=== PATIENT | female | born 1975 | race Caucasian/White ===

== ENCOUNTER 2016-09-26 08:43 | Emergency (ER) | payer BC, MEDICAID ==
[2016-09-26] MEDS ORDERED: HYDROmorphone 2 MG/ML SDV IM ONE (10:03)
[2016-09-26] MEDS ORDERED: Metoclopramide 10 MG/2 ML SDV IM ONE (10:04)
[2016-09-26] MEDS ORDERED: Potassium Chloride 10% 20 MEQ/15 ML Soln 15 ML UD Cup PO ONE (11:12)
[2016-09-26 12:00] VITALS: BP 133/73
--- NOTE | 2016-09-30 15:21 | ER ---
DATE SEEN: 09/26/2016 CHIEF COMPLAINT: Left-sided pain. HISTORY OF PRESENT ILLNESS: This 40-year-old had onset of 12/10 left flank discomfort on 09/24/2016. She was unable to sleep, had difficulty walking. No associated vomiting, fever, or dysuria. PAST MEDICAL HISTORY: Significant for GERD, depression, hypertension, hypothyroidism, diverticulitis (after eating popcorn), gastroparesis, polycystic ovaries, and a significant acute recent 20-pound weight loss over 10 days. FAMILY HISTORY: Father of myocardial infarction. Father had prostate cancer while he was alive. Mother at age 56. Has an older brother. One sister was born without one eye and the other eye is blind. Another sister is alive and well. One sister has ovarian cancer. MEDICATIONS: Hypertension. The patient treated with topiramate 50 mg daily, metoprolol 50 mg daily, hydrochlorothiazide 25 mg daily, bupropion XL one tab daily, omeprazole 20 mg daily, and levothyroxine 137 mcg daily. Also she takes Probiotic called Align 10.5 mg and Bifidobacterium infantis. ALLERGIES: She has allergies to Prozac. REVIEW OF SYSTEMS: HEENT: Denies compromised eyes, dry eyes. Compromised vision, wears glasses. Hearing is appropriate. Normal. Pharynx without abnormality. No globus. No difficulty swallowing. No recent sore throat. mouth, she notes is slightly difficult to open her mouth sometimes, it is kind of tight in her mouth. CARDIORESPIRATORY: Denies shortness of breath or cough. Denies chest pain, irregular heartbeat, lightheadedness, or dizziness. GI: As noted above. No recent diarrhea, constipation, blood in the stool, black tarry stool, and hematochezia. She does have GERD. She has had 20-pound weight loss in the last 10 days. : 2, para 2-0-0-2. Irregular menstrual periods. Polycystic ovaries. MUSCULOSKELETAL: Denies arthritis, joint aches. She has gastroparesis. It takes a while before she empties her stomach. She has had it for some time, and she has diarrhea and gastroparesis for the last 15 years. PHYSICAL EXAMINATION: VITAL SIGNS: Blood pressure 120/74, heart rate 87, respirations 18, oxygen saturation 100%, and temperature 36.8 degrees centigrade. CONSTITUTIONAL: The patient is alert, overweight, in mild distress. HEENT: PERRLA intact. Eyegrounds normal appearance. Pharynx without abnormality. There is slight increased telangiectasia of the lips when everted. No unusual changes in the gingiva. Minimal cervical adenopathy. No thyromegaly. NECK: No masses in the neck. LUNGS: Clear to auscultation. HEART: S1 and S2. No murmur. Regular rate and rhythm. ABDOMEN: No abdominal guarding or rebound. Notes trace CVA discomfort in the left compared to the right. Mild left lateral flank discomfort. No inguinal adenopathy. No inguinal masses. No impulse noted. No inguinal adenopathy. LOWER EXTREMITIES: Without edema. DERMIS: She has slight tightening around the face, there is no fissuring of the lips-no lip folds. Fingertips, no evidence for thickening or compromised circulation or compromised capillary fill. (No history of Raynaud phenomena.) LABORATORY FINDINGS: Potassium low at 3.4, otherwise sodium 136, chloride 103, CO2 24, BUN 16, creatinine 1.0, GFR greater than 60. BUN and creatinine ratio 16, glucose mildly elevated 122, creatine kinase is 314, C-reactive protein 17.7. Urinalysis is negative except for moderate bacteria, but no WBCs or RBCs and rare epithelial cells. Urine culture pending. WORKING DIAGNOSIS: 1. Probable connective tissue disease. 2. 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 3. Gastroesophageal reflux disease. 4. Hypothyroidism-she had been taking all her pills, but she forgot to take her thyroid medicine for 4 months. Recently, when she saw a doctor, her TSH on 09/17/2016 was greater than 100. She started taking medicine, and now her last TSH on 09/28/2016 is 1.71 (0.4 to 5.0). Her other more recent lab work, creatinine is 1.17, BUN is 16 on 09/24/2016. On 09/17/2016, AMA was 1.19, 0 to 0.90 is within normal range, so this is slightly elevated. Rheumatoid factor on 09/16/2016 is less than 15. Sedimentation rate the same day, it was 28.0 to 20. On 09/16/2016, free T4 was less than 0.4 (0.7 to 1.5). HPV taken in March 2015 was negative. The patient noted she did not get HPV vaccine because she was celibate. Last menstrual period was 09/19/2016 to 09/25/2016, done for one day, and then she started flowing on 09/24/2016 with recurrent flow. 5. Depression. 6. Hypertension, on 3-drug therapy. 7. History of diverticulitis, result not present. 8. Polycystic ovaries-she is not on metformin (consider use of metformin). 9. Obesity. 10.She has been sick off and on for 14 years. Etiology indeterminate, possibly related to scleroderma. 11.No family history of connective tissue disease, rheumatoid arthritis. Multiple tests have been suggested. I did not order these as her primary care physician would be helpful. Tests would be listed in vertical fashion: DOT with nucleolar pattern would be suggested positive. Anti-poisomerase I (anti-SCL-70 antibody). Anti-topoisomerase I (SCL-70 antibody). Anti-centromere antibody (HECTOR). Anti-RNA polymerase III antibody. Rheumatoid factor. Anti CCP-(antibodies to citrullinated peptide). Lupus (anti-double stranded DNA and anti-Cuevas antibodies). SUPERVISOR/PORT DIRECTOR antibodies. ANCA is not needed. Other studies, but unlikely needed. High-resolution CT scan to evaluate interstitial changes in the lungs. Pulmonary function test-at present not symptomatic. The patient is not symptomatic for Raynaud disease. She does not have dyspnea on exertion. She may have beginnings to malabsorption with diarrhea and this weight loss, so celiac study could be done at this point, but has not been ordered. 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 She has oral manifestations and she has the diarrhea and has the weight loss and abnormal thyroid studies, which may go along with scleroderma. It is possible that at present she has gastroparesis. Renal status and pulmonary status appears to be good and she does not have Raynaud phenomena. The patient to follow up with doctor next week. She is given a shot of Dilaudid 1 mg IM, Reglan 10 mg IM, and dismissed home without any further medication. DIAGNOSIS: Abdominal pain with stigmata suggestive of scleroderma, diarrhea, 20- pound weight loss in 10 days without a pulmonary and renal component, but has gastroparesis for some time. The patient was seen at 9:10 in the morning. ADDITIONAL COMMENT: Renal CT today was not performed to rule out renal stones as urine did not suggest renal stones nor did clinical findings suggest renal stones. She has a trace of CVA discomfort on the left CVA. /[id number] NIKOLAY/ABDOUL
== END 2016-09-26 11:25 | disposition home or self-care (01) ==
LOC: FB.ED 08:43
DX: R10.9 Unspecified abdominal pain (principal); K21.9 Gastro-esophageal reflux disease without esophagitis; F32.9 Major depressive disorder, single episode, unspecified; I10 Essential (primary) hypertension; E03.9 Hypothyroidism, unspecified; Z88.8 Allergy status to other drugs, medicaments and biological substances
CPT/HCPCS: 36415; 80053; 81001; 82550; 83605; 84443; 86038; 86140; 86431; 87040; 87086; 96372; 99283; A9270; J1170; J2765

== ENCOUNTER 2016-09-29 16:19 | Inpatient (IN) | payer MEDICAID ==
[2016-09-29] MEDS ORDERED: Sodium Chloride 0.9% 10 ML Syringe FLUSH PRN (17:31)
--- NOTE | 2016-09-29 17:43 | PCM.HP ---
H&P History of Present Illness - General Date of Service: 09/29/16 Admit Problem/Dx: Admission Diagnosis/Problem Admission Diagnosis/Problem Perforated diverticulum of large intestine Source of Information: Patient, Old Records History Limitations: Reports: No Limitations - History of Present Illness Initial Comments - Free Text/Narative: 40 yo wf who developed left flank pain on pm last week. Presented to the ED and was worked up. Not found to have any significant issues per her PCP. The pain has persisted and she was seen in the Clinic yesterday. Lab work was negative except for her ESR and c reactive protein. On CT scan today was noted to have a microperforation/ phlegmon in the area of the sigmoid colon. She has a known hx of diverticulosis, which was found on C scope many yrs ago. She notes some fever, chills as well as night sweats. Pain has not gotten worse. PMH is significant for PTSD, hypothyroidism, and Dysthymic disorder. Recently finished some cytomel for an exacerbation of her hypothyroidism. - Related Data Allergies/Adverse Reactions: Allergies Allergy/AdvReac Type Severity Reaction Status Date / Time fluoxetine [From Prozac] Allergy Other Verified 09/29/16 17:21 Home Medications: Home Meds Bifidobacterium Infantis [Align] 10.5 mg PO DAILY 09/26/16 [History] Hydrochlorothiazide 25 mg PO DAILY 09/26/16 [History] Levothyroxine [Levothroid] 137 mcg PO DAILY 09/26/16 [History] Metoprolol Succinate 50 mg PO DAILY 09/26/16 [History] Omeprazole 20 mg PO DAILY 09/26/16 [History] Potassium Chloride [Potassium Chloride Solution] 20 meq PO BID #14 cup 09/26/16 [Rx] Topiramate 50 mg PO DAILY 09/26/16 [History] buPROPion [buPROPion XL] 1 tab PO DAILY 09/26/16 [History] Acetaminophen with Codeine [Tylenol with Codeine #3 Tablet] 1 tab PO Q4H PRN [History] hydrOXYzine Pamoate [Hydroxyzine Pamoate] 25 - 50 mg PO BID PRN 09/29/16 [ History] Past Medical History HEENT History: Reports: Sinusitis (chronic) Gastrointestinal History: Reports: Diverticulosis, GERD, Other (See Below) ( gastroparesis) Psychiatric History: Reports: PTSD Endocrine/Metabolic History: Reports: Hypothyroidism, Other (See Below) Other Endocrine/Metabolic History: States she has taken thyroid medication for many years. - Past Surgical History GI Surgical History: Reports: Cholecystectomy, Colonoscopy Female Surgical History: Reports: Section, Tubal Ligation Social & Family History - Family History Cardiac: Reports: CAD, Hypertension Psychiatric: Reports: Depression Oncologic: Reports: Breast - Tobacco Use Smoking Status *Q: Current Every Day Smoker Years of Tobacco use: 24 Packs/Tins Daily: 0.5 - Tobacco Core Measures Smoking Frequency Within Last 30 Days: Reports: Five or More Cigarettes Per Day Smokeless Tobacco Use in Last 30 Days: No Smokeless Tobacco Use History: None - Alcohol Use Alcohol Use History: No - Recreational Drug Use Recreational Drug Use: No - Living Situation & Occupation Living situation: Reports: Single H&P Review of Systems - Review of Systems: Review Of Systems: See Below General: Reports: Fever, Chills, Night Sweats HEENT: Reports: No Symptoms Pulmonary: Reports: No Symptoms Cardiovascular: Reports: No Symptoms Gastrointestinal: Reports: Abdominal Pain Genitourinary: Reports: No Symptoms Musculoskeletal: Reports: No Symptoms Skin: Reports: No Symptoms Psychiatric: Reports: Anxiety Neurological: Reports: No Symptoms Exam - Exam Exam: See Below - Vital Signs Weight: 84.822 kg - Exam General: Alert, Oriented, Cooperative. No: Mild Distress, Moderate Distress, Severe Distress HEENT: PERRLA, Conjunctiva Clear, EOMI, Hearing Intact, Mucosa Moist & [place], Pupils Equal, Pupils Reactive, TMs Clear Neck: Supple Lungs: Clear to Auscultation, Normal Respiratory Effort Cardiovascular: Regular Rate, Regular Rhythm GI/Abdominal Exam: Normal Bowel Sounds, No Distention, No Mass, Tender (tender to palpation on the left lateral side ) (Female) Exam: Deferred Back Exam: Normal Inspection Extremities: Normal Inspection, No Pedal Edema Skin: Warm, Dry, Intact Psychiatric: Alert, Normal Affect, Normal Mood *Q Meaningful Use (ADM) - VTE *Q VTE Criteria *Q: VTE Anticoagulation Contraindications: Medical/Procedure Contrai - Stroke *Q Stroke Criteria *Q: - AMI *Q AMI Criteria *Q: - Problem List (1) Perforated diverticulum of large intestine SNOMED Code(s): 917814848 ICD Code: K57.20 - DVTRCLI OF LG INT W PERFORATION AND ABSCESS W/O BLEEDING Status: Acute Priority: High Current Visit: Yes (2) Hypertension SNOMED Code(s): 80808140 ICD Code: I10 - ESSENTIAL (PRIMARY) HYPERTENSION Status: Chronic Priority : Medium Current Visit: Yes Qualifiers: Hypertension type: essential hypertension Qualified Code(s): I10 - Essential (primary) hypertension (3) Hypothyroidism SNOMED Code(s): 49995463 ICD Code: E03.9 - HYPOTHYROIDISM, UNSPECIFIED Status: Chronic Priority: Medium Current Visit: Yes Qualifiers: Hypothyroidism type: acquired Qualified Code(s): E03.9 - Hypothyroidism, unspecified (4) GERD (gastroesophageal reflux disease) SNOMED Code(s): 205893071 ICD Code: K21.9 - GASTRO-ESOPHAGEAL REFLUX DISEASE WITHOUT ESOPHAGITIS Status: Chronic Priority: Low Current Visit: Yes Qualifiers: Esophagitis presence: esophagitis presence not specified Qualified Code(s) : K21.9 - Gastro-esophageal reflux disease without esophagitis (5) PTSD (post-traumatic stress disorder) SNOMED Code(s): 12642080 ICD Code: F43.10 - POST-TRAUMATIC STRESS DISORDER, UNSPECIFIED Status: Chronic Priority: Low Current Visit: Yes (6) Gastroparesis SNOMED Code(s): 639678505 ICD Code: K31.84 - GASTROPARESIS Status: Chronic Priority: Low Current Visit: Yes Problem List Initiated/Reviewed/Updated: Yes Orders Last 24hrs: Active Orders 24 hr Category Date Time Status Admission Status [Patient Status] [ADT] Routine ADT 09/29/16 17:15 Active Ambulate [RC] .TID Care 09/29/16 17:31 Ordered Antiembolic Devices [RC] .Routine Care 09/29/16 17:33 Ordered Intake and Output [RC] QSHIFT Care 09/29/16 17:31 Ordered Notify Provider Vital Signs [RC] PRN Care 09/29/16 17:32 Ordered Oxygen Therapy [RC] PRN Care 09/29/16 17:31 Ordered RT Incentive Spirometry [RC] Q2HWA Care 09/29/16 17:31 Ordered VTE/DVT Education [RC] Click to Edit Care 09/29/16 17:33 Ordered Vital Signs [RC] Q4HR Care 09/29/16 17:31 Ordered Nothing Per Oral Diet [DIET] Diet 09/29/16 Dinner Ordered BASIC METABOLIC PANEL,BMP [CHEM] Routine Lab 09/29/16 17:31 Ordered CBC WITH AUTO DIFF [HEME] Routine Lab 09/29/16 17:31 Ordered HYDROmorphone [Dilaudid] Med 09/29/16 17:31 Ordered 1 mg IVPUSH Q1H PRN Lactated Ringers @ 125 MLS/HR(1000ml) Med 09/29/16 17:45 Ordered Lactated Ringers [Ringers, Lactated] 1,000 ml IV ASDIRECTED Levofloxacin/Dextrose 5%-Water [Levaquin in D5W 750 MG/ Med 09/29/16 17:45 Ordered 150 ML] 750 mg Premix Bag 1 bag IV Q24H Sodium Chloride 0.9% [Saline Flush] Med 09/29/16 17:31 Ordered 10 ml FLUSH ASDIRECTED PRN metroNIDAZOLE/Normal Saline [Flagyl 500 MG in NS 100 ML Med 09/29/16 17:45 Ordered ] 500 mg Premix Bag 1 bag IV Q8H DVT/VTE Prophylaxis Reflex [OM.PC] Per Unit Routine Oth 09/29/16 17:33 Ordered Peripheral IV Insertion Adult [OM.PC] Urgent Oth 09/29/16 17:31 Ordered Sequential Compression Device [OM.PC] Routine Oth 09/29/16 17:31 Ordered Resuscitation Status Routine Resus Stat 09/29/16 17:31 Ordered Assessment/Plan Comment:: Pt does not appear to require surgical intervention at this time, but is a candidate for conservative treatment. Plan: Serial exams continue medications via oral route other price npo iv fluids levaquin and flagyl via iv. lab work this evening as a baseline though was essentially unremarkable yesterday.
[2016-09-29] MEDS: HYDROmorphone 2 MG/ML SDV IVPUSH PRN ×2 (17:55→22:43)
[2016-09-29] MEDS: Lactated Ringers 1,000 ML IV SCH (17:57)
[2016-09-29] MEDS: metroNIDAZOLE/Normal Saline 500 MG in Premix Bag 1 BAG IV SCH (17:57)
[2016-09-29] MEDS ORDERED: Nicotine 14 MG/24 Hr Patch TRDERM SCH (18:00)
[2016-09-29] MEDS: Pantoprazole 40 MG Vial IVPUSH SCH (20:24)
[2016-09-29] MEDS: Levofloxacin/Dextrose 5%-Water 750 MG in Premix Bag 1 BAG IV SCH (20:34)
[2016-09-30] MEDS ORDERED: metroNIDAZOLE/Normal Saline 0 ML ONE (00:12)
[2016-09-30] MEDS: Levofloxacin/Dextrose 5%-Water 750 MG in Premix Bag 1 BAG IV SCH ×2 (02:41→18:49)
[2016-09-30] MEDS: metroNIDAZOLE/Normal Saline 500 MG in Premix Bag 1 BAG IV SCH ×3 (02:45→17:37)
[2016-09-30] MEDS: HYDROmorphone 2 MG/ML SDV IVPUSH PRN ×4 (03:58→23:36)
[2016-09-30] MEDS: Lactated Ringers 1,000 ML IV SCH ×2 (05:18→05:19)
[2016-09-30] MEDS: Topiramate 50 MG Tab PO SCH (08:47)
[2016-09-30] MEDS: buPROPion 150 MG Tab.ER PO SCH (08:48)
[2016-09-30] MEDS: Metoprolol Succinate 50 MG Tab.ER PO SCH (08:50)
[2016-09-30] MEDS: D5 1/2 NS w/ 20 mEq/L KCl 1,000 ML IV SCH ×3 (09:19→21:23)
[2016-09-30] MEDS ORDERED: metroNIDAZOLE/Normal Saline 100 ML ONE (10:25)
[2016-09-30] MEDS ORDERED: Lactated Ringers 1,000 ML IV ONE (11:36)
--- NOTE | 2016-09-30 11:42 | PCM.SURGPN ---
- General Info Date of Service: 09/30/16 Functional Status: Reports: Pain Controlled, Urinating (dark urine ) - Review of Systems Pulmonary: Reports: No Symptoms Cardiovascular: Reports: No Symptoms Gastrointestinal: Reports: Other (flank pain) - Patient Data Vitals - Most Recent: Last Vital Signs Temp 36.6 C 09/30/16 08:00 Pulse 62 09/30/16 08:50 Resp 18 09/30/16 08:00 BP 116/73 09/30/16 08:50 Pulse Ox 100 09/30/16 08:00 Weight - Most Recent: 84.822 kg I&O - Last 24 Hours: Intake & Output 09/29/16 09/30/16 09/30/16 22:59 06:59 14:59 Intake Total 400 957 Output Total 300 475 350 Balance 100 482 -350 Lab Results Last 24 Hrs: Laboratory Results - last 24 hr 09/29/16 09/29/16 Range/Units 17:55 17:55 WBC 6.3 (4.5-12.0) X10-3/uL RBC 3.13 L (3.23-5.20) x10(6)uL Hgb 10.8 L (11.5-15.5) g/dL Hct 31.1 (30.0-51.3) % MCV 99.4 H (80-96) fL MCH 34.4 H (27.7-33.6) pg MCHC 34.6 (32.2-35.4) g/dL RDW 13.6 (11.5-15.5) % Plt Count 207 (125-369) X10(3)uL MPV 10.0 (7.4-10.4) fL Add Manual Diff Yes Neutrophils % (Manual) 56 (46-82) % Lymphocytes % (Manual) 39 H (13-37) % Monocytes % (Manual) 3 L (4-12) % Eosinophils % (Manual) 2 (0-5) % Sodium 135 (135-145) mmol/L Potassium 3.0 L (3.5-5.3) mmol/L Chloride 101 (100-110) mmol/L Carbon Dioxide 25 (23-29) mmol/L BUN 13 (5-20) mg/dL Creatinine 1.0 (0.6-1.3) mg/dL Est Cr Clr Drug Dosing 63.28 mL/min Estimated GFR (MDRD) > 60 (>60) BUN/Creatinine Ratio 13.0 (9-20) Glucose 124 H (80-116) mg/dL Calcium 9.3 (8.6-10.2) mg/dL Med Orders - Current: Current Medications Bupropion HCl (Wellbutrin Xl) 150 mg PO DAILY [facility] Last Admin: 09/30/16 08:48 Dose: 150 mg Hydromorphone HCl (Dilaudid) 1 mg IVPUSH Q1H PRN PRN Reason: Pain (moderate 4-6) Last Admin: 09/30/16 10:42 Dose: 1 mg Levofloxacin/Dextrose 750 mg/ (Premix) 150 mls @ 100 mls/hr IV Q24H [facility] Last Infusion: 09/29/16 22:04 Dose: Infused Metronidazole 500 mg/ Premix 100 mls @ 100 mls/hr IV Q8H [facility] Last Admin: 09/30/16 10:28 Dose: 100 mls/hr Potassium Chloride/Dextrose/Sod Cl (D5 1/2 Ns W/ 20 Meq/L Kcl) 1,000 mls @ 125 mls/hr IV Q8H [facility] Last Admin: 09/30/16 09:19 Dose: 125 mls/hr Lactated Ringer's (Ringers, Lactated) 1,000 mls @ 999 mls/hr IV BOLUS ONE Stop: 09/30/16 12:36 Levothyroxine Sodium (Levothroid) 137 mcg PO DAILY [facility] Last Admin: 09/30/16 08:47 Dose: 137 mcg Metoprolol Succinate (Toprol Xl) 50 mg PO DAILY [facility] Last Admin: 09/30/16 08:50 Dose: 50 mg Nicotine (Habitrol) 14 mg TRDERM Q24H [facility] Pantoprazole Sodium (Protonix Iv) 40 mg IVPUSH Q24H [facility] Last Admin: 09/29/16 20:24 Dose: 40 mg Potassium Chloride (Klor-Con M20) 20 meq PO BID [facility] Sodium Chloride (Saline Flush) 10 ml FLUSH ASDIRECTED PRN PRN Reason: Keep Vein Open Last Admin: 09/29/16 18:03 Dose: 10 ml Topiramate (Topamax) 50 mg PO DAILY [facility] Last Admin: 09/30/16 08:47 Dose: 50 mg Discontinued Medications Lactated Ringer's (Ringers, Lactated) 1,000 mls @ 125 mls/hr IV ASDIRECTED [facility] Last Admin: 09/30/16 05:19 Dose: 125 mls/hr Metronidazole (Flagyl 500 Mg In Ns 100 Ml) Confirm Administered Dose 100 mls @ as directed .ROUTE .STK-MED ONE Stop: 09/30/16 00:13 Last Admin: 09/30/16 04:53 Dose: Not Given Metronidazole (Flagyl 500 Mg In Ns 100 Ml) Confirm Administered Dose 100 mls @ as directed .ROUTE .STK-MED ONE Stop: 09/30/16 10:26 Nicotine (Habitrol) 14 mg TRDERM DAILY [facility] Last Admin: 09/29/16 18:11 Dose: Not Given - Exam General: Alert, Oriented, No Acute Distress Lungs: Clear to Auscultation, Normal Respiratory Effort Cardiovascular: Regular Rate, Regular Rhythm GI/Abdominal Exam: Normal Bowel Sounds, Non-Tender, Tender (left flank ) - Problem List & Annotations (1) Perforated diverticulum of large intestine SNOMED Code(s): 777166433 Code(s): K57.20 - DVTRCLI OF LG INT W PERFORATION AND ABSCESS W/O BLEEDING Status: Acute Priority: High Current Visit: Yes (2) Hypertension SNOMED Code(s): 20717383 Code(s): I10 - ESSENTIAL (PRIMARY) HYPERTENSION Status: Chronic Priority : Medium Current Visit: Yes Qualifiers: Hypertension type: essential hypertension Qualified Code(s): I10 - Essential (primary) hypertension (3) Hypothyroidism SNOMED Code(s): 02782879 Code(s): E03.9 - HYPOTHYROIDISM, UNSPECIFIED Status: Chronic Priority: Medium Current Visit: Yes Qualifiers: Hypothyroidism type: acquired Qualified Code(s): E03.9 - Hypothyroidism, unspecified (4) GERD (gastroesophageal reflux disease) SNOMED Code(s): 384421606 Code(s): K21.9 - GASTRO-ESOPHAGEAL REFLUX DISEASE WITHOUT ESOPHAGITIS Status: Chronic Priority: Low Current Visit: Yes Qualifiers: Esophagitis presence: esophagitis presence not specified Qualified Code(s) : K21.9 - Gastro-esophageal reflux disease without esophagitis (5) PTSD (post-traumatic stress disorder) SNOMED Code(s): 69515849 Code(s): F43.10 - POST-TRAUMATIC STRESS DISORDER, UNSPECIFIED Status: Chronic Priority: Low Current Visit: Yes (6) Gastroparesis SNOMED Code(s): 935944248 Code(s): K31.84 - GASTROPARESIS Status: Chronic Priority: Low Current Visit: Yes - Problem List Review Problem List Initiated/Reviewed/Updated: Yes - My Orders Last 24 Hours: Active Orders 24 hr Category Date Time Status Admission Status [Patient Status] [ADT] Routine ADT 09/29/16 17:15 Active Ambulate [RC] .TID Care 09/29/16 17:31 Active Antiembolic Devices [RC] .Routine Care 09/29/16 17:33 Active Intake and Output [RC] 06,14,22 Care 09/29/16 17:31 Active Notify Provider Vital Signs [RC] PRN Care 09/29/16 17:32 Active Oxygen Therapy [RC] PRN Care 09/29/16 17:31 Active RT Incentive Spirometry [RC] Q2HWA Care 09/29/16 17:31 Active Vital Signs [RC] Q4HR Care 09/29/16 17:31 Active Nothing Per Oral Diet [DIET] Diet 09/29/16 Dinner Active D5 1/2 NS w/ 20 mEq/L KCl 1,000 ml Med 09/30/16 08:30 Active IV Q8H HYDROmorphone [Dilaudid] Med 09/29/16 17:31 Active 1 mg IVPUSH Q1H PRN Lactated Ringers [Ringers, Lactated] 1,000 ml Med 09/30/16 11:36 Ordered IV BOLUS Levofloxacin/Dextrose 5%-Water [Levaquin in D5W 750 MG/ Med 09/29/16 19:00 Active 150 ML] 750 mg Premix Bag 1 bag IV Q24H Levothyroxine [Levothroid] Med 09/30/16 09:00 Active 137 mcg PO DAILY Metoprolol Succinate [Toprol XL] Med 09/30/16 09:00 Active 50 mg PO DAILY Nicotine [Habitrol] Med 09/30/16 18:00 Active 14 mg TRDERM Q24H Pantoprazole [ProTONIX IV] Med 09/29/16 18:00 Active 40 mg IVPUSH Q24H Potassium Chloride [Klor-Con M20] Med 09/30/16 21:00 Ordered 20 meq PO BID Sodium Chloride 0.9% [Saline Flush] Med 09/29/16 17:31 Active 10 ml FLUSH ASDIRECTED PRN Topiramate [Topamax] Med 09/30/16 09:00 Active 50 mg PO DAILY buPROPion [Wellbutrin XL] Med 09/30/16 09:00 Active 150 mg PO DAILY metroNIDAZOLE/Normal Saline [Flagyl 500 MG in NS 100 ML Med 09/29/16 18:00 Active ] 500 mg Premix Bag 1 bag IV Q8H DVT/VTE Prophylaxis Reflex [OM.PC] Per Unit Routine Oth 09/29/16 17:33 Ordered Peripheral IV Insertion Adult [OM.PC] Urgent Oth 09/29/16 17:31 Ordered Sequential Compression Device [OM.PC] Routine Oth 09/29/16 17:31 Ordered Resuscitation Status Routine Resus Stat 09/29/16 17:31 Ordered Medication Orders Bupropion HCl (Wellbutrin Xl) 150 mg PO DAILY [facility] Last Admin: 09/30/16 08:48 Dose: 150 mg Hydromorphone HCl (Dilaudid) 1 mg IVPUSH Q1H PRN PRN Reason: Pain (moderate 4-6) Last Admin: 09/30/16 10:42 Dose: 1 mg Admin: 09/30/16 03:58 Dose: 1 mg Admin: 09/29/16 22:43 Dose: 1 mg Admin: 09/29/16 17:55 Dose: 1 mg Levofloxacin/Dextrose 750 mg/ (Premix) 150 mls @ 100 mls/hr IV Q24H [facility] Last Infusion: 09/29/16 22:04 Dose: 100 mls/hr Admin: 09/29/16 20:34 Dose: 100 mls/hr Metronidazole 500 mg/ Premix 100 mls @ 100 mls/hr IV Q8H [facility] Last Admin: 09/30/16 10:28 Dose: 100 mls/hr Infusion: 09/30/16 03:45 Dose: 100 mls/hr Admin: 09/30/16 02:45 Dose: 100 mls/hr Infusion: 09/29/16 18:57 Dose: 100 mls/hr Admin: 09/29/16 17:57 Dose: 100 mls/hr Potassium Chloride/Dextrose/Sod Cl (D5 1/2 Ns W/ 20 Meq/L Kcl) 1,000 mls @ 125 mls/hr IV Q8H [facility] Last Admin: 09/30/16 09:19 Dose: 125 mls/hr Lactated Ringer's (Ringers, Lactated) 1,000 mls @ 999 mls/hr IV BOLUS ONE Stop: 09/30/16 12:36 Levothyroxine Sodium (Levothroid) 137 mcg PO DAILY [facility] Last Admin: 09/30/16 08:47 Dose: 137 mcg Metoprolol Succinate (Toprol Xl) 50 mg PO DAILY [facility] Last Admin: 09/30/16 08:50 Dose: 50 mg Nicotine (Habitrol) 14 mg TRDERM Q24H [facility] Pantoprazole Sodium (Protonix Iv) 40 mg IVPUSH Q24H [facility] Last Admin: 09/29/16 20:24 Dose: 40 mg Potassium Chloride (Klor-Con M20) 20 meq PO BID [facility] Sodium Chloride (Saline Flush) 10 ml FLUSH ASDIRECTED PRN PRN Reason: Keep Vein Open Last Admin: 09/29/16 18:03 Dose: 10 ml Topiramate (Topamax) 50 mg PO DAILY [facility] Last Admin: 09/30/16 08:47 Dose: 50 mg - Assessment Assessment (Free Text/Narrative):: stable abd exam - Plan Plan (Free Text/Narrative):: will allow clears will start some KCl bolus of LR
[2016-09-30] MEDS: Ondansetron 4 MG/2 ML SDV IVPUSH SCH ×3 (12:44→23:30)
[2016-09-30] MEDS: Pantoprazole 40 MG Vial IVPUSH SCH (17:36)
[2016-09-30] MEDS ORDERED: Nicotine 14 MG/24 Hr Patch TRDERM SCH (18:00)
[2016-09-30] MEDS: Potassium Chloride 20 MEQ Tab.ER PO SCH (20:31)
[2016-10-01] MEDS: metroNIDAZOLE/Normal Saline 500 MG in Premix Bag 1 BAG IV SCH ×2 (01:36→10:07)
[2016-10-01] MEDS: Ondansetron 4 MG/2 ML SDV IVPUSH SCH ×2 (06:02→12:25)
[2016-10-01] MEDS: D5 1/2 NS w/ 20 mEq/L KCl 1,000 ML IV SCH ×2 (06:05→08:55)
[2016-10-01 07:43] VITALS: BP 141/92
[2016-10-01] MEDS: Potassium Chloride 20 MEQ Tab.ER PO SCH (09:02)
[2016-10-01] MEDS: buPROPion 150 MG Tab.ER PO SCH (09:03)
[2016-10-01] MEDS: Metoprolol Succinate 50 MG Tab.ER PO SCH (09:03)
[2016-10-01] MEDS: Topiramate 50 MG Tab PO SCH (09:03)
--- NOTE | 2016-10-01 10:43 | PCM.DCSUM1 ---
Discharge Summary - Hospital Course Free Text/Narrative:: Pt was admitted with left flank pain and CT evidence of a microperforation of a sigmoid diverticuli. She was placed on IV antibiotics and kept NPO. Started on a clear liquid diet which she tolerated. Pain has improved, and since she had a normal WBC she will be sent home. - Discharge Data Discharge Date: 10/01/16 Discharge Disposition: Home, Self-Care 01 Condition: Good - Discharge Diagnosis/Problem(s) (1) Perforated diverticulum of large intestine SNOMED Code(s): 084853952 ICD Code: K57.20 - DVTRCLI OF LG INT W PERFORATION AND ABSCESS W/O BLEEDING Status: Acute Priority: High Current Visit: Yes (2) Hypertension SNOMED Code(s): 78055739 ICD Code: I10 - ESSENTIAL (PRIMARY) HYPERTENSION Status: Chronic Priority : Medium Current Visit: Yes Qualifiers: Hypertension type: essential hypertension Qualified Code(s): I10 - Essential (primary) hypertension (3) Hypothyroidism SNOMED Code(s): 89982551 ICD Code: E03.9 - HYPOTHYROIDISM, UNSPECIFIED Status: Chronic Priority: Medium Current Visit: Yes Qualifiers: Hypothyroidism type: acquired Qualified Code(s): E03.9 - Hypothyroidism, unspecified (4) GERD (gastroesophageal reflux disease) SNOMED Code(s): 432593223 ICD Code: K21.9 - GASTRO-ESOPHAGEAL REFLUX DISEASE WITHOUT ESOPHAGITIS Status: Chronic Priority: Low Current Visit: Yes Qualifiers: Esophagitis presence: esophagitis presence not specified Qualified Code(s) : K21.9 - Gastro-esophageal reflux disease without esophagitis (5) PTSD (post-traumatic stress disorder) SNOMED Code(s): 94782304 ICD Code: F43.10 - POST-TRAUMATIC STRESS DISORDER, UNSPECIFIED Status: Chronic Priority: Low Current Visit: Yes (6) Gastroparesis SNOMED Code(s): 157463196 ICD Code: K31.84 - GASTROPARESIS Status: Chronic Priority: Low Current Visit: Yes - Patient Instructions Diet: Usual Diet as Tolerated, No Alcoholic Beverages Activity: No Strenuous Activities, Rest and Relax Today Driving: Do Not Drive Showering/Bathing: May Shower Notify Provider of: Fever, Increased Pain - Discharge Plan Prescriptions/Med Rec: Celecoxib [CeleBREX] 200 mg PO BID #14 cap Levofloxacin [Levaquin] 750 mg PO Q24H #10 tablet metroNIDAZOLE [Flagyl] 500 mg PO Q8H #30 tab traMADol HCl [Ultram] 50 mg PO Q6HR PRN #30 tablet PRN Reason: Pain (Moderate 4-6) Home Medications: Home Meds Bifidobacterium Infantis [Align] 10.5 mg PO DAILY 09/26/16 [History] Hydrochlorothiazide 25 mg PO DAILY 09/26/16 [History] Levothyroxine [Levothroid] 137 mcg PO DAILY 09/26/16 [History] Metoprolol Succinate 50 mg PO DAILY 09/26/16 [History] Omeprazole 20 mg PO DAILY 09/26/16 [History] Potassium Chloride [Potassium Chloride Solution] 20 meq PO BID #14 cup 09/26/16 [Rx] Topiramate 50 mg PO DAILY 09/26/16 [History] buPROPion [buPROPion XL] 150 mg PO DAILY 09/26/16 [History] Acetaminophen with Codeine [Tylenol with Codeine #3 Tablet] 1 tab PO Q4H PRN [History] hydrOXYzine Pamoate [Hydroxyzine Pamoate] 25 - 50 mg PO BID PRN 09/29/16 [ History] Celecoxib [CeleBREX] 200 mg PO BID #14 cap 10/01/16 [Rx] Levofloxacin [Levaquin] 750 mg PO Q24H #10 tablet 10/01/16 [Rx] metroNIDAZOLE [Flagyl] 500 mg PO Q8H #30 tab 10/01/16 [Rx] traMADol HCl [Ultram] 50 mg PO Q6HR PRN #30 tablet 10/01/16 [Rx] Patient Handouts: Diverticulitis, [id number] Referrals: Brain Rosenthal MD [Physician] - 10/05/16 - Discharge Summary/Plan Comment DC Time >30 min.: No - General Info Date of Service: 10/01/16 - Review of Systems General: Reports: No Symptoms, Fever, Weakness Pulmonary: Reports: No Symptoms Cardiovascular: Reports: No Symptoms Gastrointestinal: Reports: Abdominal Pain, Other - Patient Data Vitals - Most Recent: Last Vital Signs Temp 36.4 C 10/01/16 07:20 Pulse 63 10/01/16 09:03 Resp 20 10/01/16 07:20 BP 141/92 H 10/01/16 09:03 Pulse Ox 100 10/01/16 07:20 Weight - Most Recent: 84.822 kg I&O - Last 24 hours: Intake & Output 09/30/16 10/01/16 10/01/16 22:59 06:59 14:59 Intake Total 2900 1267 1400 Output Total 1375 850 950 Balance 1525 417 450 Med Orders - Current: Current Medications Bupropion HCl (Wellbutrin Xl) 150 mg PO DAILY [facility] Last Admin: 10/01/16 09:03 Dose: 150 mg Hydromorphone HCl (Dilaudid) 1 mg IVPUSH Q1H PRN PRN Reason: Pain (moderate 4-6) Last Admin: 09/30/16 23:36 Dose: 1 mg Levofloxacin/Dextrose 750 mg/ (Premix) 150 mls @ 100 mls/hr IV Q24H [facility] Last Admin: 09/30/16 18:49 Dose: 100 mls/hr Metronidazole 500 mg/ Premix 100 mls @ 100 mls/hr IV Q8H [facility] Last Admin: 10/01/16 10:07 Dose: 100 mls/hr Potassium Chloride/Dextrose/Sod Cl (D5 1/2 Ns W/ 20 Meq/L Kcl) 1,000 mls @ 125 mls/hr IV Q8H [facility] Last Admin: 10/01/16 08:55 Dose: Not Given Levothyroxine Sodium (Levothroid) 137 mcg PO DAILY [facility] Last Admin: 10/01/16 09:02 Dose: 137 mcg Metoprolol Succinate (Toprol Xl) 50 mg PO DAILY [facility] Last Admin: 10/01/16 09:03 Dose: 50 mg Nicotine (Habitrol) 14 mg TRDERM Q24H [facility] Last Admin: 09/30/16 18:00 Dose: Not Given Ondansetron HCl (Zofran) 4 mg IVPUSH Q6H [facility] Last Admin: 10/01/16 06:02 Dose: 4 mg Pantoprazole Sodium (Protonix Iv) 40 mg IVPUSH Q24H [facility] Last Admin: 09/30/16 17:36 Dose: 40 mg Potassium Chloride (Klor-Con M20) 20 meq PO BID [facility] Last Admin: 10/01/16 09:02 Dose: 20 meq Sodium Chloride (Saline Flush) 10 ml FLUSH ASDIRECTED PRN PRN Reason: Keep Vein Open Last Admin: 09/29/16 18:03 Dose: 10 ml Topiramate (Topamax) 50 mg PO DAILY [facility] Last Admin: 10/01/16 09:03 Dose: 50 mg Discontinued Medications Lactated Ringer's (Ringers, Lactated) 1,000 mls @ 125 mls/hr IV ASDIRECTED [facility] Last Admin: 09/30/16 05:19 Dose: 125 mls/hr Metronidazole (Flagyl 500 Mg In Ns 100 Ml) Confirm Administered Dose 100 mls @ as directed .ROUTE .STK-MED ONE Stop: 09/30/16 00:13 Last Admin: 09/30/16 04:53 Dose: Not Given Metronidazole (Flagyl 500 Mg In Ns 100 Ml) Confirm Administered Dose 100 mls @ as directed .ROUTE .STK-MED ONE Stop: 09/30/16 10:26 Last Admin: 09/30/16 12:47 Dose: Not Given Lactated Ringer's (Ringers, Lactated) 1,000 mls @ 999 mls/hr IV BOLUS ONE Stop: 09/30/16 12:36 Last Admin: 09/30/16 12:48 Dose: 999 mls/hr Nicotine (Habitrol) 14 mg TRDERM DAILY [facility] Last Admin: 09/29/16 18:11 Dose: Not Given - Exam General: Reports: Alert, Oriented, No Acute Distress Lungs: Reports: Clear to Auscultation, Normal Respiratory Effort Cardiovascular: Reports: Regular Rate, Regular Rhythm GI/Abdominal Exam: Normal Bowel Sounds, Soft, Non-Tender, Other (left flank tenderness, much better. ) *Q Meaningful Use (DIS) - VTE *Q VTE Criteria *Q: VTE Anticoagulation Contraindications: Medical/Procedure Contrai - Stroke *Q Stroke Criteria *Q: - AMI *Q AMI Criteria *Q:
== END 2016-10-01 11:24 | disposition home or self-care (01) | DRG 392 ==
LOC: FB.MS 17:05
PROVIDERS: ADMIT Surgery; ATTEND Surgery
DX: K57.20 Diverticulitis of large intestine with perforation and abscess without bleeding (principal); I10 Essential (primary) hypertension; E03.9 Hypothyroidism, unspecified; K21.9 Gastro-esophageal reflux disease without esophagitis; F43.10 Post-traumatic stress disorder, unspecified; K31.84 Gastroparesis; F17.210 Nicotine dependence, cigarettes, uncomplicated; F34.1 Dysthymic disorder
CPT/HCPCS: 36415; 80048; 85025; 94150; A9270-GY; C9113; J1170; J1956; J2405; J3480; J7050; J7120

== ENCOUNTER 2019-07-30 11:51 | Emergency (ER) | payer MEDICAID ==
[2019-07-30 12:14] VITALS: BP 139/83; PULSE 88
--- NOTE | 2019-07-30 12:27 | EDM.PDOC ---
ED HPI GENERAL MEDICAL PROBLEM - General Chief Complaint: ENT Problem Stated Complaint: LEFT EYE PAIN Time Seen by Provider: 07/30/19 11:55 - History of Present Illness INITIAL COMMENTS - FREE TEXT/NARRATIVE: Has pain in the left eye ans swelling , redness in the last 3 days has gotten worse states minimal blurred vision no headache , fever or chills noted Onset: Gradual Onset Date: 07/27/19 Duration: Day(s): (4), Getting Worse Location: Reports: Face (left upper eyelid) Quality: Reports: Ache Severity: Mild Improves with: Reports: Heat Therapy Associated Symptoms: Reports: No Other Symptoms left eye Pain Score (Numeric/FACES): 7 - Related Data Allergies Allergy/AdvReac Type Severity Reaction Status Date / Time amoxicillin [From Augmentin] Allergy Rash Verified 07/30/19 12:08 clavulanic acid Allergy Rash Verified 07/30/19 12:08 [From Augmentin] fluoxetine [From Prozac] Allergy Other Verified 09/29/16 17:21 Home Meds: Home Meds Bifidobacterium Infantis [Align] 10.5 mg PO DAILY 09/26/16 [History] Hydrochlorothiazide 12.5 mg PO DAILY 09/26/16 [History] Metoprolol Succinate 50 mg PO DAILY 09/26/16 [History] Omeprazole 20 mg PO DAILY 09/26/16 [History] Topiramate 50 mg PO BID 09/26/16 [History] buPROPion [buPROPion XL] 150 mg PO DAILY 09/26/16 [History] hydrOXYzine pamoate [Hydroxyzine Pamoate] 25 - 50 mg PO BID PRN 09/29/16 [ History] Albuterol [Proventil Neb Soln] 2.5 mg IH QID 12/29/17 [History] Ciclopirox/Urea/Camph/Men/Euc [Ciclopirox 8% Treatment Kit] 1 applic TOP BID [History] DULoxetine HCl [Duloxetine HCl] 30 mg PO DAILY 12/29/17 [History] Levothyroxine 175 mcg PO DAILY 12/29/17 [History] Meloxicam [Mobic] 7.5 mg PO WITHBREAKFAST 12/29/17 [History] Metoclopramide HCl 10 mg PO TIDAC 12/29/17 [History] Acetaminophen [Acetaminophen Extra Strength] 1,000 mg PO ASDIRECTED PRN [History] Ciprofloxacin [Ciloxan 0.3% Ophth Soln] 2 drop EYELF Q4H #1 bottle 07/30/19 [Rx] Past Medical History HEENT History: Reports: Impaired Vision, Sinusitis Cardiovascular History: Reports: Hypertension Gastrointestinal History: Reports: Diverticulosis, GERD, Other (See Below) Other Gastrointestinal History: GASTROPARESIS Genitourinary History: Reports: UTI, Recurrent BRIDGE RIGGER History: Reports: Other BRIDGE RIGGER History: III PARA II AB I Musculoskeletal History: Reports: Osteoporosis Neurological History: Reports: None Psychiatric History: Reports: PTSD Endocrine/Metabolic History: Reports: Hypothyroidism, Other (See Below) Other Endocrine/Metabolic History: States she has taken thyroid medication for many years. Hematologic History: Reports: None Immunologic History: Reports: None Oncologic (Cancer) History: Reports: None Dermatologic History: Reports: Other (See Below) Other Dermatologic History: CHRONIC CONDITION ON RIGHT FOOT ONLY. STATES IS HAVING ISSUES WITH RASH. PEELING LIKE AREA ON UNDERFOOT, NO OPEN AREAS. STATES STARTING ON CREAM FOR THIS. - Infectious Disease History Infectious Disease History: Reports: None - Past Surgical History Head Surgeries/Procedures: Reports: None GI Surgical History: Reports: Cholecystectomy, Colonoscopy, EGD Female Surgical History: Reports: Section, Tubal Ligation Social & Family History - Family History Family Medical History: Noncontributory Cardiac: Reports: CAD, Hypertension Psychiatric: Reports: Depression Oncologic: Reports: Breast - Tobacco Use Smoking Status *Q: Current Every Day Smoker Years of Tobacco use: 30 Packs/Tins Daily: 0.5 - Caffeine Use Caffeine Use: Reports: None - Living Situation & Occupation Living situation: Reports: Single ED ROS ENT - Review of Systems Review Of Systems: Comprehensive ROS is negative, except as noted in HPI. HEENT: Reports: Eye Discharge (noted last night from the left eye), Eye Pain Respiratory: Reports: No Symptoms Cardiovascular: Reports: No Symptoms Endocrine: Reports: No Symptoms Musculoskeletal: Reports: No Symptoms Skin: Reports: No Symptoms Neurological: Reports: No Symptoms ED EXAM, ENT - Physical Exam Exam: See Below Exam Limited By: No Limitations General Appearance: Alert, WD/WN, No Apparent Distress Eye Exam: Left Eye: Other (swelling redness and pain in the left upper eyelid), Bilateral Eye: EOMI, Periorbital Changes Ears: Normal External Exam Nose: Nasal Deformity Mouth/Throat: Normal Inspection Head: Atraumatic Neck: Supple, Non-Tender Respiratory/Chest: No Respiratory Distress Course - Vital Signs Last Recorded V/S: Last Vital Signs Temp 37.2 C 07/30/19 11:51 Pulse 88 07/30/19 11:51 Resp 17 07/30/19 11:51 BP 139/83 07/30/19 11:51 Pulse Ox 99 07/30/19 11:51 Departure - Departure Time of Disposition: 12:30 Disposition: Home, Self-Care 01 Clinical Impression: Hordeolum externum (stye), Hordeolum externum left upper eyelid - Discharge Information *PRESCRIPTION DRUG MONITORING PROGRAM REVIEWED*: Not Applicable *COPY OF PRESCRIPTION DRUG MONITORING REPORT IN PATIENT EMILY: Not Applicable Instructions: David Referrals: Sowmya Valiente REST ROOM ATTENDANT [Primary Care Provider] - Additional Instructions: 1) continue with warm compress on the left eye lid every 2-4 hrs while awake 2) Ok to use ibuprofen as needed for pain 3) See opthalmologist if symptoms do not resolve as expected Sepsis Event Note - Evaluation Sepsis Screening Result: No Definite Risk - Focused Exam Vital Signs: Vital Signs Temp Pulse Resp BP Pulse Ox 07/30/19 11:51 37.2 C 88 17 139/83 99 Date Exam was Performed: 07/30/19 Time Exam was Performed: 12:22
== END 2019-07-30 12:27 | disposition home or self-care (01) ==
LOC: FB.ED 11:51
DX: H00.014 Hordeolum externum left upper eyelid (principal); I10 Essential (primary) hypertension; K21.9 Gastro-esophageal reflux disease without esophagitis; E03.9 Hypothyroidism, unspecified; Z90.89 Acquired absence of other organs; Z88.1 Allergy status to other antibiotic agents; Z88.8 Allergy status to other drugs, medicaments and biological substances; Z79.899 Other long term (current) drug therapy
CPT/HCPCS: 99283

== ENCOUNTER 2019-12-17 14:29 | Emergency (ER) | payer BC, MEDICAID ==
[2019-12-17 16:01] VITALS: BP 151/90; PULSE 103
== END 2019-12-17 15:05 | disposition left against medical advice (07) ==
LOC: FB.ED 14:29
DX: Z53.21 Procedure and treatment not carried out due to patient leaving prior to being seen by health care provider (principal)

== ENCOUNTER 2021-05-14 16:55 | Observation (INO) | payer BC, MEDICAID ==
[2021-05-14] MEDS ORDERED: Sodium Chloride 0.9% 1,000 ML IV ONE (17:19)
[2021-05-14] MEDS: Sodium Chloride 0.9% 10 ML Syringe FLUSH PRN (17:40)
[2021-05-14 18:02] LABS: ESTIMATED GFR > 60 (>60)
[2021-05-14] MEDS ORDERED: Morphine 4 MG/ML VIAL IVPUSH STA (18:39)
[2021-05-14] MEDS ORDERED: Ondansetron 4 MG/2 ML SDV IVPUSH STA (18:39)
[2021-05-14] MEDS ORDERED: Ondansetron 4 MG/2 ML SDV IV PRN (18:59)
[2021-05-14] MEDS: Piperacillin/Tazobactam 4.5 GM in Sodium Chloride 0.9% 100 ML IV SCH (19:15)
[2021-05-14] MEDS: Sodium Chloride 0.9% 1,000 ML IV SCH (19:16)
[2021-05-14] MEDS ORDERED: LORazepam 2 MG/ML SDV IVPUSH PRN (20:29)
[2021-05-15] MEDS: Morphine 2 MG/ML SYRINGE IVPUSH PRN ×2 (00:43→04:05)
[2021-05-15] MEDS: Piperacillin/Tazobactam 4.5 GM in Sodium Chloride 0.9% 100 ML IV SCH ×4 (00:52→18:32)
[2021-05-15] MEDS: Sodium Chloride 0.9% 1,000 ML IV SCH ×3 (04:05→21:10)
[2021-05-15 07:09] LABS: ESTIMATED GFR > 60 (>60)
[2021-05-15] MEDS ORDERED: Triamcinolone Acetonide 0.1% Crm 15 GM Tube TOP PRN (08:00)
[2021-05-15] MEDS ORDERED: Acetaminophen 500 MG Tab PO PRN (08:00)
[2021-05-15] MEDS ORDERED: DEXAMETHASONE EYEBOTH PRN (08:00)
[2021-05-15] MEDS ORDERED: Albuterol 0.083% 2.5 MG/3 ML Neb Soln INH PRN ×2 (08:00)
[2021-05-15] MEDS ORDERED: [UNRECOGNIZED DRUG - OTHER] EYEBOTH PRN (08:00)
[2021-05-15] MEDS ORDERED: TOBRAMYCIN EYEBOTH PRN (08:00)
[2021-05-15] MEDS: Ketorolac 30 MG/ML SDV IVPUSH PRN ×2 (08:27→17:13)
[2021-05-15] MEDS: Enoxaparin 40 MG/0.4 ML Syringe SUBCUT SCH (08:30)
[2021-05-15] MEDS ORDERED: FLUTICASONE PROPIONATE INH SCH (09:00)
[2021-05-15] MEDS: Hydroxychloroquine 200 MG Tab PO SCH ×2 (09:42→20:14)
[2021-05-15] MEDS: Pantoprazole 40 MG Tab.CR PO SCH (09:42)
[2021-05-15] MEDS: Topiramate 50 MG Tab PO SCH (09:42)
[2021-05-15] MEDS: Estradiol 1 MG Tab PO SCH (09:42)
[2021-05-15] MEDS: buPROPion 150 MG Tab.ER PO SCH (09:43)
[2021-05-15] MEDS: Cholecalciferol (Vitamin D3) 25 MCG Tab PO SCH (09:43)
[2021-05-15] MEDS: Methylphenidate 5 MG Tab PO SCH ×3 (10:27→18:27)
[2021-05-15] MEDS: Sodium Chloride 0.9% 10 ML Syringe FLUSH PRN (19:35)
[2021-05-16] MEDS: Piperacillin/Tazobactam 4.5 GM in Sodium Chloride 0.9% 100 ML IV SCH ×4 (00:45→19:52)
[2021-05-16] MEDS: Sodium Chloride 0.9% 1,000 ML IV SCH (05:50)
[2021-05-16] MEDS: Ketorolac 30 MG/ML SDV IVPUSH PRN ×2 (06:04→13:05)
[2021-05-16] MEDS: Enoxaparin 40 MG/0.4 ML Syringe SUBCUT SCH (08:54)
[2021-05-16] MEDS: Estradiol 1 MG Tab PO SCH (08:56)
[2021-05-16] MEDS: Hydroxychloroquine 200 MG Tab PO SCH (08:56)
[2021-05-16] MEDS: Topiramate 50 MG Tab PO SCH (08:57)
[2021-05-16] MEDS: buPROPion 150 MG Tab.ER PO SCH (08:58)
[2021-05-16] MEDS: Cholecalciferol (Vitamin D3) 25 MCG Tab PO SCH (08:58)
[2021-05-16] MEDS: Pantoprazole 40 MG Tab.CR PO SCH (08:59)
[2021-05-16] MEDS: Methylphenidate 5 MG Tab PO SCH ×3 (09:08→18:19)
[2021-05-16 10:20] LABS: ESTIMATED GFR > 60 (>60)
[2021-05-16] MEDS ORDERED: Iopamidol 755 Mg/ML 100 ML Bottle IV ONE (12:04)
[2021-05-16] MEDS ORDERED: Diatrizoate Meglumine/Diatrizoate Sodium 37% 30 ML Bottle PO ONE (12:04)
[2021-05-16] MEDS: Sodium Chloride 0.9% 10 ML Syringe FLUSH PRN (13:19)
[2021-05-16] MEDS ORDERED: Acetaminophen 500 MG Tab PO SCH (18:00)
[2021-05-16] MEDS ORDERED: Amoxicillin/Clavulanate K 875-125 MG Tab PO SCH (18:00)
[2021-05-16] MEDS ORDERED: Ibuprofen 200 MG Tab PO SCH (18:00)
[2021-05-16 19:37] VITALS: BP 148/78; PULSE 74
== END 2021-05-16 19:30 | disposition home or self-care (01) ==
LOC: FB.ED 16:55 → FB.MS 19:25
PROVIDERS: ADMIT Family Medicine; ATTEND Family Medicine
DX: K57.92 Diverticulitis of intestine, part unspecified, without perforation or abscess without bleeding (principal); K65.9 Peritonitis, unspecified; H54.7 Unspecified visual loss; I12.9 Hypertensive chronic kidney disease with stage 1 through stage 4 chronic kidney disease, or unspecified chronic kidney disease; G47.30 Sleep apnea, unspecified; K21.9 Gastro-esophageal reflux disease without esophagitis; E03.9 Hypothyroidism, unspecified; F41.9 Anxiety disorder, unspecified; F32.A Depression, unspecified; G43.909 Migraine, unspecified, not intractable, without status migrainosus; M32.9 Systemic lupus erythematosus, unspecified; N18.9 Chronic kidney disease, unspecified; N30.90 Cystitis, unspecified without hematuria; Q21.1 Atrial septal defect; M41.9 Scoliosis, unspecified; M51.87 Other intervertebral disc disorders, lumbosacral region; Z98.890 Other specified postprocedural states; Z90.49 Acquired absence of other specified parts of digestive tract; Z90.710 Acquired absence of both cervix and uterus; Z98.51 Tubal ligation status; Z88.0 Allergy status to penicillin; Z88.1 Allergy status to other antibiotic agents; Z88.8 Allergy status to other drugs, medicaments and biological substances; Z79.899 Other long term (current) drug therapy; Z79.890 Hormone replacement therapy; Z79.82 Long term (current) use of aspirin; Z79.51 Long term (current) use of inhaled steroids; Z20.822 Contact with and (suspected) exposure to COVID-19
CPT/HCPCS: 36415; 74177; 80048; 80053; 82150; 83605; 83690; 85025; 87040; 87635; 96365; 96366; 96372; 96375; 96376; 99284; 99285; A9270; G0378; J1650; J1885; J2060; J2270; J2405; J2543; J7030; Q9963; Q9967; 99217; 99219; J3490; U0002

== ENCOUNTER 2022-11-01 14:22 | Emergency (ER) | payer BC, MEDICAID ==
[2022-11-01] MEDS ORDERED: Sodium Chloride 0.9% 10 ML Syringe FLUSH PRN (14:58)
[2022-11-01] MEDS ORDERED: LORazepam 2 MG/ML SDV IVPUSH ONE (14:58)
[2022-11-01] MEDS ORDERED: Albuterol/Ipratropium 3.0-0.5 MG/3 ML Neb Soln NEB ONE (14:58)
[2022-11-01 15:18] LABS: BASOPHILS PERCENT AUTO 0.4 % (0.2-1.5); EOSINOPHILS ABSOLUTE AUTO 0.1 x10-3/uL (0.0-0.8); EOSINOPHILS PERCENT AUTO 0.8 % (0.6-8.1); HEMATOCRIT 41.7 % (34.2-48.2); HEMOGLOBIN 14.2 g/dL (11.4-15.5); LYMPHOCYTES ABSOLUTE AUTO 1.6 x10-3/uL (1.0-4.4); LYMPHOCYTES PERCENT AUTO 17.7 % (18.4-52.1); MEAN CORPUSCULAR HEMOGLOBIN 33.7 pg (23.9-33.9); MEAN CORPUSCULAR HGB CONC 34.1 g/dL (31.9-34.8); MEAN CORPUSCULAR VOLUME 98.7 fL (76.7-100.5); MEAN PLATELET VOLUME 9.2 fL (7.1-12.4); MONOCYTES ABSOLUTE AUTO 0.5 x10-3/uL (0.3-1.0); MONOCYTES PERCENT AUTO 5.7 % (4.4-15.7); NEUTROPHILS ABSOLUTE AUTO 6.8 x10-3/uL (1.5-6.3); NEUTROPHILS PERCENT AUTO 75.4 % (30.8-76.2); PLATELET COUNT,PLT 319 x10(3)uL (151-488); RED BLOOD CELL COUNT 4.22 x10(6)uL (3.60-5.20); RED CELL DISTRIBUTION WIDTH 13.9 % (12.3-16.5); WHITE BLOOD CELL COUNT,WBC 9.1 x10-3/uL (3.0-10.3)
[2022-11-01 15:25] LABS: BLOOD UREA NITROGEN,BUN 21 mg/dL (7-18); BUN/CREATININE RATIO 19.1 (9-20); CALCIUM 9.7 mg/dL (8.6-10.2); CARBON DIOXIDE,CO2 30 mmol/L (21-32); CHLORIDE,CL 104 mmol/L (100-110); CREATININE 1.1 mg/dL (0.55-1.02); ESTIMATED GFR 62 mL/min (>60); GLUCOSE RANDOM 102 mg/dL (80-116); POTASSIUM,K 3.9 mmol/L (3.5-5.3); SODIUM,NA 141 mmol/L (135-145)
[2022-11-01 15:30] LABS: BILIRUBIN,URINE NEGATIVE (NEGATIVE); GLUCOSE,URINE NORMAL (NORMAL); KETONES,URINE NEGATIVE (NEGATIVE); LEUKOCYTE ESTERASE,URINE NEGATIVE (NEGATIVE); NITRITE,URINE NEGATIVE (NEGATIVE); OCCULT BLOOD,URINE NEGATIVE (NEGATIVE); PROTEIN,URINE NEGATIVE (NEGATIVE); UROBILINOGEN,URINE NORMAL (NEGATIVE)
[2022-11-01 15:31] LABS: ALANINE AMINOTRANSFERASE,ALT 27 U/L (12-36); ALBUMIN 3.6 g/dL (3.5-5.2); ALKALINE PHOSPHATASE 72 IU/L (56-112); ASPARTATE AMNIOTRANSFERASE,AST 15 IU/L (5-25); BILIRUBIN TOTAL 0.3 mg/dL (0.1-1.3); MAGNESIUM 2.1 mg/dL (1.8-2.5); PROTEIN TOTAL,TP 7.4 g/dL (6.0-8.0)
[2022-11-01 15:32] LABS: APPEARANCE,URINE CLEAR (CLEAR); BACTERIA,URINE NOT SEEN (NS); COLOR,URINE YELLOW (YELLOW); RBC,URINE NOT SEEN (0-5); SQUAMOUS EPITHELIAL CELLS,UR OCCASIONAL (NS,R,O); WBC,URINE 0-5 (0-5)
[2022-11-01] MEDS ORDERED: Iopamidol 755 Mg/ML 100 ML Bottle IV ONE (16:36)
[2022-11-01] MEDS ORDERED: Sodium Chloride 0.9% 500 ML IV ONE (17:04)
[2022-11-01] MEDS ORDERED: Lisinopril 10 MG Tab PO ONE (19:44)
[2022-11-01] MEDS ORDERED: Zolpidem 10 MG Tab PO ONE (19:45)
[2022-11-01 19:52] VITALS: PULSE 95
[2022-11-01] MEDS ORDERED: Zolpidem 10 MG Tab ONE (19:56)
[2022-11-01 20:02] VITALS: BP 155/78
== END 2022-11-01 20:10 | disposition home or self-care (01) ==
LOC: FB.ED 14:22
DX: F41.9 Anxiety disorder, unspecified (principal); I10 Essential (primary) hypertension; R51.9 Headache, unspecified; R06.00 Dyspnea, unspecified; L93.0 Discoid lupus erythematosus; I25.10 Atherosclerotic heart disease of native coronary artery without angina pectoris; I25.2 Old myocardial infarction; K21.9 Gastro-esophageal reflux disease without esophagitis; E03.9 Hypothyroidism, unspecified; Z79.899 Other long term (current) drug therapy; Z87.891 Personal history of nicotine dependence; Z88.1 Allergy status to other antibiotic agents; Z88.8 Allergy status to other drugs, medicaments and biological substances
CPT/HCPCS: 36415; 71045; 71275; 80053; 81001; 83735; 83880; 84484; 85025; 85379; 93005; 94640; 96374; 99285-25; A9270-GY; J2060; J3490; J7040; J7620; Q9967